=== PATIENT | female | born 1980 | race African-American/Black ===

== ENCOUNTER 2016-09-02 11:40 | Emergency (ER) | payer OTHER ==
[~2016-09-02] VITALS: Ht 172.7 cm; Wt 86.0 kg
[2016-09-02] MEDS ORDERED: IBUPROFEN 600MG TABLET PO ONE (12:15)
[2016-09-02 12:49] VITALS: BP 130/65
== END 2016-09-02 12:50 | disposition home or self-care (01) ==
LOC: ER 12:47
DX: R51 Headache (principal); W01.0XXA Fall on same level from slipping, tripping and stumbling without subsequent striking against object, initial encounter; Y93.89 Activity, other specified; Y92.89 Other specified places as the place of occurrence of the external cause; Y99.8 Other external cause status
CPT/HCPCS: 99283